=== PATIENT | female | born 1960 | race Caucasian/White ===

== ENCOUNTER → 2024-02-29 14:01 | Outpatient (REF) | payer BC, SELFPAY | LOC: WDC 14:01 | PROVIDERS: ATTENDING PHYSICIAN Obstetrics & Gynecology; FAMILY PHYSICIAN Physician Assistant Medical | DX: N95.1 Menopausal and female climacteric states (principal); Z78.0 Asymptomatic menopausal state; Z12.31 Encounter for screening mammogram for malignant neoplasm of breast | CPT/HCPCS: 77063; 77067 ==

== ENCOUNTER → 2025-03-07 14:44 | Outpatient (REF) | payer BC, SELFPAY | LOC: WDC 14:44 | PROVIDERS: ATTENDING PHYSICIAN Physician Assistant Medical | DX: Z12.31 Encounter for screening mammogram for malignant neoplasm of breast (principal) | CPT/HCPCS: 77063; 77067 ==